=== PATIENT | female | born 2000 | race African-American/Black ===

== ENCOUNTER 2022-09-21 10:36 | Emergency (ER) | payer SELFPAY ==
[2022-09-21 13:18] LABS: Specific Gravity 1.031 (1.005-1.030)
[2022-09-21 13:42] LABS: Specific Gravity > 1.030 (1.005-1.030); Urine Bacteria <20 /HPF (<20); Urine Bilirubin NEGATIVE (Negative); Urine Blood 3+ (OVER) (Negative); Urine Clarity Extremely Turbid (Clear); Urine Color Red (Yellow); Urine Glucose NEGATIVE (Negative); Urine Mucus 3+ /HPF (None Seen); Urine Protein 2+ (Negative); Urine RBC >50 /HPF (None Seen); Urine Urobilinogen Normal (Normal)
[2022-09-21 14:23] LABS: Absolute Lymphocytes (CBC) 1.7 K/uL (0.7-4.9); Hematocrit 33.4 % (36.0-45.0); Lymphocytes % 28.6 % (15.3-44.8); MCV 74.1 fL (80-100); MPV 8.2 fL (7.6-11.3); RBC Red Blood Cell Count 4.51 M/uL (3.86-4.86)
[2022-09-21 14:33] LABS: Potassium 3.7 mEq/L (3.5-5.1)
--- NOTE | 2022-09-21 14:36 | RAD REPORT ---
EXAM DESCRIPTION: US - Transvaginal OB - 09/21/2022 2:13 pm CLINICAL HISTORY: Vaginal bleeding;Abd cramping, COMPARISON: No comparisons TECHNIQUE: Sonographic grayscale and color flow images of a the pelvis were obtained through transva ginal approach. FINDINGS: Uterus is normal in size measuring 8.5 centimeter in length, and homogeneous myometrium ap art from few scattered vascular spaces. No focal myometrial abnormality. Endometrium is normal thickn ess, 7 millimeter, without fluid or focal lesions. Trace pelvic fluid with debris. Right ovary measures 1.8 x 2.8 x 1.9 centimeter. Left ovary measures 2.7 x 1.9 x 1.6 centimeter. Both ovaries demonstrate small normal-appearing peripheral follicles. No suspicious masses or cysts. Pres erved flow to both ovaries. IMPRESSION: 1. No intrauterine identified. 2. Trace pelvic fluid, likely physiologic. 3. No suspicious myometrial or adnexal lesions.
--- NOTE | 2022-09-21 14:58 | EDPHYS ---
Physician Documentation [facility] Name: Edwina Love Age: 22 yrs Sex: Female : 2000 Arrival Date: 09/21/2022 Time: 10:36 Bed 10 Private MD: ED Physician Ruben Keenan HPI: 09/21 17:32 This 22 yrs old Black Female presents to ER via Ambulatory with complaints of Abdominal kb Pain, Nausea/Vomiting/Diarrhea, Vaginal Bleeding. 17:32 The patient presents with abdominal pain suprapubic area. Onset: The symptoms/episode kb began/occurred yesterday. The symptoms do not radiate. Associated signs and symptoms: Pertinent positives: nausea and vomiting, hematuria, Pertinent negatives: dysuria, fever. The symptoms are described as crampy. Modifying factors: The symptoms are alleviated by nothing, the symptoms are aggravated by nothing. Severity of pain: At its worst the pain was moderate in the emergency department the pain is unchanged. The patient has not experienced similar symptoms in the past. The patient has not recently seen a physician. Pt reports suprapubic cramping pain, blood in her urine and nausea and vomiting that started last night. Denies nausea or vomiting today. 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 Flu vaccine is not up to date. - Social history:: Smoking status: Patient denies any tobacco usage or history of. ROS: 17:29 Constitutional: Negative for fever, chills, and weight loss. kb 17:29 Abdomen/GI: Positive for nausea and vomiting, abdominal cramps, Negative for diarrhea. 17:29 : Positive for hematuria. 17:29 All other systems are negative. Exam: 17:29 Constitutional: This is a well developed, well nourished patient who is awake, alert, kb and in no acute distress. Head/Face: Normocephalic, atraumatic. ENT: Moist Mucous membranes Cardiovascular: Regular rate and rhythm with a normal S1 and S2. No gallops, murmurs, or rubs. No pulse deficits. Respiratory: Respirations even and unlabored. No increased work of breathing. Talking in full sentences Abdomen/GI: Soft, non-tender. No distention Skin: Warm, dry with normal turgor. Normal color. MS/ Extremity: Pulses equal, no cyanosis. Neurovascular intact. Full, normal range of motion. Neuro: Awake and alert, GCS 15, oriented to person, place, time, and situation. Moves all extremities. Normal gait. Vital Signs: 10:52 BP 123 / 83; Pulse 84; Resp 18; Temp 97.8; Pulse Ox 100% ; Weight 65.77 kg; Height 5 kc6 ft. 3 in. ; Pain 6/10; 15:18 BP 106 / 83; Pulse 83; Resp 17; Pulse Ox 100% ; Pain 0/10; ll1 10:52 Body Mass Index 25.69 (65.77 kg, 160.02 cm) kc6 10:52 Pain Scale: Adult kc6 15:18 Pain Scale: Adult ll1 MDM: 10:52 Patient medically screened. kb 17:33 Differential diagnosis: UTI, STI, . Data reviewed: vital signs, nurses notes. kb Counseling: I had a detailed discussion with the patient and/or guardian regarding: the historical points, exam findings, and any diagnostic results supporting the discharge/admit diagnosis, lab results, radiology results, the need for outpatient follow up, an OB/Gyne specialist, to return to the emergency department if symptoms worsen or persist or if there are any questions or concerns that arise at home. 09/21 10:52 Order name: Test, Urine; Complete Time: 13:38 kb 09/21 10:52 Order name: Urinalysis w/ reflexes; Complete Time: 13:44 kb 09/21 13:41 Order name: Abo/rh Typing; Complete Time: 14:57 kb 09/21 13:41 Order name: Basic Metabolic Panel; Complete Time: 14:35 kb 09/21 13:41 Order name: CBC with Diff; Complete Time: 14:35 kb 09/21 13:41 Order name: Quantitative Hcg; Complete Time: 14:35 kb 09/21 13:45 Order name: Urine Culture EDMS 09/21 13:41 Order name: US Transvaginal Ob; Complete Time: 14:38 kb 09/21 13:41 Order name: IV Saline Lock; Complete Time: 13:50 kb 09/21 13:41 Order name: Labs collected and sent; Complete Time: 13:50 kb 09/21 13:41 Order name: NPO; Complete Time: 13:50 kb Administered Medications: No medications were administered Disposition: 18:08 Co-signature as Attending Physician, Ruben Keenan MD I reviewed the patient's care rt provided by the Advanced Practice Provider and agree with the diagnosis and treatment plan. Disposition Summary: 09/21/22 14:58 Discharge Ordered Location: Home kb Condition: Stable kb Diagnosis - Threatened kb Followup: kb - With: Emergency Department - When: As needed - Reason: Worsening of condition Followup: kb - With: Private Physician - When: 2 - 3 days - Reason: Recheck today's complaints, Continuance of care, Re-evaluation by your physician Discharge Instructions: - Discharge Summary Sheet kb - Threatened Miscarriage, [id number] kb - Vaginal Bleeding During , First Trimester, [id number] kb Forms: - Medication Reconciliation Form kb - Thank You Letter kb - Antibiotic Education kb - Prescription Opioid Use kb Signatures: Dispatcher [employer] Caron Harrington, CLEANER AND PRESSER-C KRYSTEN-Sirisha Llanes, RN RN kc6 Ruben Keenan MD MD rt
--- NOTE | 2022-09-21 14:58 | ER ---
Nurse's Notes [facility] Name: Edwina Love Age: 22 yrs Sex: Female : 2000 Arrival Date: 09/21/2022 Time: 10:36 Bed 10 Private MD: Diagnosis: Threatened Presentation: 09/21 10:52 Chief complaint: Patient states: LLQ pain and vaginal bleeding that began last night kc6 with n/v and diarrhea. Coronavirus screen: At this time, the client does not indicate any symptoms associated with coronavirus-19. Ebola Screen: No symptoms or risks identified at this time. Initial Sepsis Screen: Does the patient meet any 2 criteria? No. Patient's initial sepsis screen is negative. Does the patient have a suspected source of infection? No. Patient's initial sepsis screen is negative. Risk Assessment: Do you want to hurt yourself or someone else? Patient reports no desire to harm self or others. Onset of symptoms was September 21, 2022. 10:52 Method Of Arrival: Ambulatory [facility] 10:52 Acuity: ISAAC 3 kc6 Triage Assessment: 10:54 General: Appears in no apparent distress. comfortable, Behavior is calm, cooperative, kc6 appropriate for age. Pain: Complains of pain in left lower quadrant Pain currently is 6 out of 10 on a pain scale. Cardiovascular: Capillary refill < 3 seconds. Respiratory: Airway is patent Trachea midline Respiratory effort is even, unlabored, Respiratory pattern is regular, symmetrical. GI: Reports lower abdominal pain, diarrhea, nausea, vomiting. : Reports vaginal bleeding that is bright red, heavy flow. 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 Flu vaccine is not up to date. - Social history:: Smoking status: Patient denies any tobacco usage or history of. Screenin:18 [facility] ED Fall Risk Assessment (Adult) Score/Fall Risk Level 0 - 2 = Low Risk ll1 Oriented to surroundings, Maintained a safe environment, Educated pt \T\ family on fall prevention, incl call for assistance when getting out of bed, Hourly rounding (assess needs \T\ fall precautionary measures) done. Abuse screen: Denies threats or abuse. Nutritional screening: No deficits noted. Tuberculosis screening: No symptoms or risk factors identified. Assessment: 14:08 Reassessment: No changes from previously documented assessment. Patient and/or family ll1 updated on plan of care and expected duration. Pain level reassessed. Patient is alert, oriented x 3, equal unlabored respirations, skin warm/dry/pink. 15:17 Reassessment: No changes from previously documented assessment. Patient and/or family ll1 updated on plan of care and expected duration. Pain level reassessed. Patient is alert, oriented x 3, equal unlabored respirations, skin warm/dry/pink. Vital Signs: 10:52 BP 123 / 83; Pulse 84; Resp 18; Temp 97.8; Pulse Ox 100% ; Weight 65.77 kg; Height 5 kc6 ft. 3 in. ; Pain 6/10; 15:18 BP 106 / 83; Pulse 83; Resp 17; Pulse Ox 100% ; Pain 0/10; ll1 10:52 Body Mass Index 25.69 (65.77 kg, 160.02 cm) kc6 10:52 Pain Scale: Adult kc6 15:18 Pain Scale: Adult ll1 ED Course: 10:41 Patient arrived in ED. am2 10:41 Caron Bills FNP-C [facility] kb 10:41 Ruben Keenan MD is Attending Physician. kb 10:54 Triage completed. kc6 10:54 Arm band placed on. kc6 11:33 Test, Urine Sent. ll1 11:33 Urinalysis w/ reflexes Sent. ll1 13:18 Test, Urine Sent. rs5 13:18 Urinalysis w/ reflexes Sent. rs5 14:08 Gaby Barlow, RN is Primary Nurse. ll1 14:08 Inserted saline lock: 22 gauge in right antecubital area, using aseptic technique. ll1 Blood collected. 14:15 US Transvaginal Ob In Process Unspecified. EDMS 15:18 IV discontinued, intact, bleeding controlled, No redness/swelling at site. Pressure ll1 dressing applied. 15:18 No provider procedures requiring assistance completed. ll1 15:19 Patient has correct armband on for positive identification. Bed in low position. Call ll1 light in reach. Cardiac monitoring not applicable on this patient. Administered Medications: No medications were administered Medication: 15:19 VIS not applicable for this client. ll1 Outcome: 14:58 Discharge ordered by . ace 15:18 Discharged to home ambulatory. ll1 15:18 Condition: stable 15:18 Discharge instructions given to patient, Instructed on discharge instructions, follow up and referral plans. Demonstrated understanding of instructions, follow-up care. 15:19 Patient left the ED. ll1 Addendum: 09/25/2022 09:18 Addendum: Culture Results: Positive urine culture. Patient was not prescribed a a5 antibiotics at discharge. Report given to JULEE for further evaluation and then to senior manager creative services for follow up with patient. Phone call Attempt #1 left voice mail. Signatures: Dispatcher MedCorengist EDCaron Duncan, SHERRI CLIENT DELIVERY SPECIALIST-Britney Angelo, RN RN aa5 Marilyn Newman Lynsay RN RN ll1 Sirisha Segovia RN RN kc6 Zane Antoine rs5
[2022-09-21 15:34] VITALS: TEMP 97.8; O2SAT 100
[2022-09-21 15:44] VITALS: BP 106/83
== END 2022-09-21 15:19 | disposition home or self-care (01) ==
LOC: ER 10:36
DX: O20.0 Threatened abortion (principal)
CPT/HCPCS: 36415; 76817; 80048; 81001; 81025; 84702; 85025; 86900; 86901; 87077; 87086; 87088; 87186; 99284

== ENCOUNTER 2022-09-27 12:00 | Emergency (ER) | payer SELFPAY ==
--- NOTE | 2022-09-27 14:07 | ER ---
Nurse's Notes [facility] Name: Edwina Love Age: 22 yrs Sex: Female : 2000 Arrival Date: 09/27/2022 Time: 12:00 Bed DX3 Private MD: Diagnosis: Threatened Presentation: 09/27 12:38 Chief complaint: Patient states: needs a repeat hcg level, was seen here a week ago , iw is approx 3-4 weeks . Coronavirus screen: At this time, the client does not indicate any symptoms associated with coronavirus-19. Ebola Screen: Patient negative for fever greater than or equal to 101.5 degrees Fahrenheit, and additional compatible Ebola Virus Disease symptoms Patient denies exposure to infectious person. Patient denies travel to an Ebola-affected area in the 21 days before illness onset. No symptoms or risks identified at this time. Initial Sepsis Screen: Does the patient meet any 2 criteria? No. Patient's initial sepsis screen is negative. Does the patient have a suspected source of infection? No. Patient's initial sepsis screen is negative. Risk Assessment: Do you want to hurt yourself or someone else? Patient reports no desire to harm self or others. Onset of symptoms was September 27, 2022. 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 - Social history:: Smoking status: Patient denies any tobacco usage or history of. Screenin:58 [facility] ED Fall Risk Assessment (Adult) History of falling in the last 3 months, iw including since admission. Abuse screen: Denies threats or abuse. Denies injuries from another. Nutritional screening: No deficits noted. Tuberculosis screening: No symptoms or risk factors identified. Assessment: 12:58 General: Appears in no apparent distress. Behavior is calm, cooperative. Pain: Denies iw pain. Neuro: Level of Consciousness is awake, alert, obeys commands, Oriented to person, place, time, situation, Moves all extremities. Full function. Respiratory: Respiratory effort is even, unlabored, Respiratory pattern is regular. Derm: Skin is intact, is healthy with good turgor. Musculoskeletal: Range of motion: intact in all extremities. 14:15 Reassessment: No changes from previously documented assessment. Patient and/or family ll1 updated on plan of care and expected duration. Pain level reassessed. Patient is alert, oriented x 3, equal unlabored respirations, skin warm/dry/pink. Vital Signs: 12:38 BP 125 / 86; Pulse 95; Resp 16; Temp 98.4; Pulse Ox 100% on R/A; Weight 65.77 kg; iw Height 5 ft. 3 in. ; 12:38 Body Mass Index 25.69 (65.77 kg, 160.02 cm) iw ED Course: 12:02 Patient arrived in ED. rg4 12:03 Maikel Stover MD is Attending Physician. bs3 12:39 Triage completed. iw 12:58 Palma Price RN is Primary Nurse. iw 12:58 HCG-Quantitative Sent. rs5 14:16 No provider procedures requiring assistance completed. Patient did not have IV access ll1 during this emergency room visit. 14:16 Arm band placed on. ll1 14:16 Patient has correct armband on for positive identification. Bed in low position. Call ll1 light in reach. Side rails up X 1. Cardiac monitoring not applicable on this patient. Administered Medications: No medications were administered Medication: 12:59 VIS not applicable for this client. iw Outcome: 14:07 Discharge ordered by . bs3 14:16 Discharged to home ambulatory. ll1 14:16 Condition: stable 14:16 Discharge instructions given to patient, Instructed on discharge instructions, follow up and referral plans. Demonstrated understanding of instructions, follow-up care. 14:18 Patient left the ED. ll1 Signatures: Palma Price, RN BRENDA iw Sofya Escalante rg4 Gaby Barlow RN RN ll1 Maikel Stover MD MD bs3 Zane Antoine rs5
--- NOTE | 2022-09-27 14:07 | EDPHYS ---
Physician Documentation [facility] Name: Edwina Love Age: 22 yrs Sex: Female : 2000 Arrival Date: 09/27/2022 Time: 12:00 Bed DX3 Private MD: ED Physician Maikel Stover HPI: 09/27 14:05 This 22 yrs old Black Female presents to ER via Ambulatory with complaints of Recheck bs3 HCG Levels. 14:05 22-year-old female presents for repeat beta-hCG she denies any complaints the bleeding bs3 is stopped she has no significant abdominal pain denies any other concerns. 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 - Social history:: Smoking status: Patient denies any tobacco usage or history of. ROS: 14:05 Constitutional: Negative for fever, chills bs3 14:05 All other systems are negative. Exam: 14:05 Constitutional: This is a well developed, well nourished patient who is awake, alert, bs3 and in no acute distress. Head/Face: Normocephalic, atraumatic. Eyes: Pupils equal round and reactive to light, extra-ocular motions intact. Lids and lashes normal. ENT: mmm, no posterior phyarngeal erythema Chest/axilla: Normal chest wall appearance and motion. Nontender with no deformity. No lesions are appreciated. Cardiovascular: Regular rate and rhythm with a normal S1 and S2. symmetric pulses in upper extremities Respiratory: Lungs have equal breath sounds bilaterally, clear to auscultation, no respiratory distress Abdomen/GI: Soft, non-tender, no rebound or guarding MS/ Extremity: Pulses equal, no cyanosis. Neurovascular intact. Full, normal range of motion. Neuro: Awake and alert, GCS 15, oriented to person, place, time, and situation. Cranial nerves II-XII grossly intact. Motor strength 5/5 in all extremities. Sensory grossly intact. Psych: Awake, alert, with orientation to person, place and time. Behavior, mood, and affect are within normal limits. Vital Signs: 12:38 BP 125 / 86; Pulse 95; Resp 16; Temp 98.4; Pulse Ox 100% on R/A; Weight 65.77 kg; iw Height 5 ft. 3 in. ; 12:38 Body Mass Index 25.69 (65.77 kg, 160.02 cm) iw MDM: 12:03 Patient medically screened. bs3 14:05 Differential Diagnosis Possible ectopic versus IUP versus miscarriage. Data reviewed: bs3 vital signs, nurses notes. ED course: hCG improved however she returned more than 72 hours later therefore it is slightly difficult to interpret however it does seem like it is doubling appropriately advise repeat in 1 week with ultrasound in 1 week to follow return precautions for abdominal pain or vaginal bleeding or any other concerning symptoms. 09/27 12:03 Order name: HCG-Quantitative; Complete Time: 13:48 bs3 Administered Medications: No medications were administered Disposition Summary: 09/27/22 14:07 Discharge Ordered Location: Home bs3 Problem: new bs3 Symptoms: have improved bs3 Condition: Stable bs3 Diagnosis - Threatened bs3 Followup: bs3 - With: Private Physician - When: 1 week - Reason: Re-evaluation by your physician Discharge Instructions: - Discharge Summary Sheet bs3 - Vaginal Bleeding During , First Trimester bs3 Forms: - Medication Reconciliation Form bs3 - Thank You Letter bs3 - Antibiotic Education bs3 - Prescription Opioid Use bs3 Signatures: Dispatcher [employer] Palma Hopkins, Gaby Gibbs RN, RN RN kelly1 Maikel Stover MD MD bs3
[2022-09-27 14:54] VITALS: BP 125/86; TEMP 98.4; O2SAT 100
== END 2022-09-27 14:18 | disposition home or self-care (01) ==
LOC: ER 12:00
DX: O20.0 Threatened abortion (principal)
CPT/HCPCS: 36415; 84702

== ENCOUNTER 2024-02-17 15:55 | Emergency (ER) | payer SELFPAY ==
[2024-02-17 16:36] LABS: Specific Gravity 1.029 (1.005-1.030); Sqamous Epithelial <5 /HPF (None Seen); Urine Bacteria None Seen /HPF (<20); Urine Bilirubin NEGATIVE (Negative); Urine Blood Trace (Negative); Urine Clarity Turbid (Clear); Urine Color Yellow (Yellow); Urine Culture Reflex Order NOT NEEDED; Urine Glucose NEGATIVE (Negative); Urine Ketones NEGATIVE (Negative); Urine Microscopic Reflex YN ORDER UMIC; Urine Mucus 2+ /HPF (None Seen); Urine Nitrite NEGATIVE (Negative); Urine Protein 1+ (Negative); Urine RBC <5 /HPF (None Seen); Urine Urobilinogen Normal (Normal); Urine WBC <5 /HPF (<5); Urine Yeast (Budding) Trace /HPF (None Seen); Urine pH 5.5 (5.0-7.0)
[2024-02-17 17:09] LABS: Absolute Lymphocytes (CBC) 1.5 K/uL (0.7-4.9); Absolute Monocytes 0.4 K/uL (0.1-1.3); Absolute Neutrophil 4.5 K/uL (1.8-8.0); Basophils % 0.5 % (0-1.3); Eosinophils % 0.2 % (0-4.4); Hemoglobin 11.6 g/dL (12.0-15.0); Lymphocytes % 23.3 % (15.3-44.8); MCH 29.5 pg (27.0-35.0); MCHC 32.4 g/dL (32.0-36.0); MCV 91.1 fL (80-100); MPV 8.7 fL (7.6-11.3); Monocytes % 5.9 % (3.3-12.3); Neutrophils % 70.1 % (41.7-73.7); Platelets 314 thou/uL (152-406); RBC Red Blood Cell Count 3.95 M/uL (3.86-4.86); Red Cell Distribution Width 16.2 % (12.1-15.2)
--- NOTE | 2024-02-17 17:16 | RAD REPORT ---
EXAMINATION: Transvaginal Study Probe CLINICAL INDICATION: Pelvic pain with vaginal bleeding TECHNIQUE: Real-time ultrasonography of the pelvis was performed transvaginally. Color and spectral D oppler evaluation of the ovaries was performed. COMPARISON: January 2024 FINDINGS: The uterus measures 9 x 5 x 7 cm. Endometrial stripe normal. A fibroid is not seen 2.2 cm mass containing echoes is present within the right ovary. It has decreased in size. Previously it measured 3.1 cm. This is likely a hemorrhagic cyst. Blood flow is present to the right ovary. 2 cm hemorrhagic cyst left ovary. Blood flow to the left ovary is present. Right and left adnexa unremarkable Small amount of free fluid. IMPRESSION: 2.2 cm right ovarian hemorrhagic cyst has decreased in size since prior exam 2.1 cm left ovarian hemorrhagic cyst
[2024-02-17 17:23] LABS: Anion Gap 6.1 mEq/L (5.0-15.0); Potassium 4.1 mEq/L (3.5-5.1)
--- NOTE | 2024-02-17 17:27 | EDPHYS ---
Physician Documentation [facility] Name: Edwina Love Age: 24 yrs Sex: Female : 2000 Arrival Date: 02/17/2024 Time: 15:55 Bed 8 Private MD: ED Physician West Cooper HPI: 02/16 17:01 This 24 yrs old Black Female presents to ER via Ambulatory with complaints of Vaginal kb Bleeding. 17:01 Pt is a 24 year old female who presents for vaginal bleeding that has been ongoing for kb 9 days. States she had a period 2.5 weeks ago and then started bleeding again. Denies abd pain, shortness of breath, dizziness. STates the bleeding is not heavy and she only has to wear a tampon at times, but sometimes it is just spotting. . 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 - Infectious Disease History:: Denies. - Social history:: Smoking status: Patient denies any tobacco usage or history of. ROS: 17:00 Constitutional: As per HPI kb Exam: 17:00 Constitutional: This is a well developed, well nourished patient who is awake, alert, kb and in no acute distress. Head/Face: Normocephalic, atraumatic. ENT: Moist Mucous membranes Cardiovascular: Regular rate Respiratory: Respirations even and unlabored. No increased work of breathing. Talking in full sentences Abdomen/GI: Soft, non-tender. No distention Skin: Warm, dry with normal turgor. Normal color. MS/ Extremity: Pulses equal, no cyanosis. Neurovascular intact. Full, normal range of motion. Neuro: Awake and alert, GCS 15, oriented to person, place, time, and situation. Moves all extremities. Normal gait. Vital Signs: 16:02 BP 131 / 99; Pulse 84; Resp 17; Temp 97.4; Pulse Ox 100% ; Weight 63.5 kg; Height 5 ft. ll1 2 in. ; Pain 0/10; 17:31 BP 122 / 81; Pulse 75; Resp 16; Pulse Ox 98% on R/A; mb9 16:02 Body Mass Index 25.61 (63.50 kg, 157.48 cm) ll1 16:02 Pain Scale: Adult ll1 MDM: 15:58 Patient medically screened. kb 17:01 Differential diagnosis: endometriosis, menorrhea, ovarian cyst, uterine fibroids. Data kb reviewed: vital signs, nurses notes. 17:26 Counseling: I had a detailed discussion with the patient and/or guardian regarding the kb historical points, exam findings, and any diagnostic results supporting the discharge/admit diagnosis, lab results, radiology results, the need for outpatient follow up, an OB/Gyne specialist, to return to the emergency department if symptoms worsen or persist or if there are any questions or concerns that arise at home. 02/16 16:12 Order name: Basic Metabolic Panel; Complete Time: 17:23 kb 02/16 16:12 Order name: CBC with Diff; Complete Time: 17:12 kb 02/16 16:12 Order name: Test, Urine; Complete Time: 16:42 kb 02/16 16:12 Order name: Urinalysis w/ reflexes; Complete Time: 16:42 kb 02/16 16:12 Order name: US Transvaginal Study (Probe); Complete Time: 17:17 kb 02/16 16:12 Order name: IV Saline Lock; Complete Time: 17:00 kb 02/16 16:12 Order name: Labs collected and sent; Complete Time: 17:00 kb 02/16 16:12 Order name: NPO; Complete Time: 16:16 kb Administered Medications: No medications were administered Disposition Summary: 02/17/24 17:26 Discharge Ordered Notes: Location: Home kb Condition: Stable kb Diagnosis - Abnormal uterine and vaginal bleeding, unspecified kb - Other ovarian cysts kb Followup: kb - With: Emergency Department - When: As needed - Reason: Worsening of condition Followup: kb - With: Private Physician - When: 2 - 3 days - Reason: Recheck today's complaints, Continuance of care, Re-evaluation by your physician Discharge Instructions: - Discharge Summary Sheet kb - Ovarian Cyst, [id number] kb - Abnormal Uterine Bleeding, [id number] kb Forms: - Medication Reconciliation Form kb - Antibiotic Education kb - Prescription Opioid Use kb - Patient Portal Instructions kb - Leadership Thank You Letter kb - Work release form mb9 Addendum: 02/19/2024 17:59 I was immediately available for consultation during this patient's visit. I did not e c2 personally see the patient or discuss the patient with the JULEE. . Signatures: Dispatcher [employer] Caron Harrington, FRONT END WEB DESIGNER-C KRYSTEN-Gaby Zapata RN RN ll1 Terry, Dena Machuca RN RN mb9 West Cooper MD MD ec2 Corrections: (The following items were deleted from the chart) 02/16 16:13 16:13 Transvaginal Study (Probe)+[email or web address] ordered. MINOR G[place]
--- NOTE | 2024-02-17 17:27 | ER ---
Nurse's Notes [facility] Name: Edwina Love Age: 24 yrs Sex: Female : 2000 Arrival Date: 02/17/2024 Time: 15:55 Bed 8 Private MD: Diagnosis: Abnormal uterine and vaginal bleeding, unspecified;Other ovarian cysts Presentation: 02/16 16:02 Chief complaint: Patient states: Vaginal bleeding for 9 days. + fatigue, but no ll1 significant pain. Coronavirus screen: Client denies travel out of the [place] in the last 14 days. At this time, the client does not indicate any symptoms associated with coronavirus-19. Ebola Screen: Patient denies travel to an Ebola-affected area in the 21 days before illness onset. Initial Sepsis Screen: Does the patient meet any 2 criteria? No. Patient's initial sepsis screen is negative. Does the patient have a suspected source of infection? No. Patient's initial sepsis screen is negative. Risk Assessment: Do you want to hurt yourself or someone else? Patient reports no desire to harm self or others. Onset of symptoms was February 08, 2024. 16:02 Method Of Arrival: Ambulatory ll1 16:02 Acuity: ISAAC 3 ll1 Triage Assessment: 16:04 General: Appears uncomfortable, Behavior is calm, cooperative, appropriate for age. ll1 Pain: Denies pain. : Reports vaginal bleeding that is brown, light flow. 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 - Infectious Disease History:: Denies. - Social history:: Smoking status: Patient denies any tobacco usage or history of. Screenin:52 [facility] ED Fall Risk Assessment (Adult) History of falling in the last 3 months, mb9 including since admission No falls in past 3 months (0 pts) Confusion or Disorientation No (0 pts) Intoxicated or Sedated No (0 pts) Impaired Gait No (0 pts) Mobility Assist Device Used No (0 pt) Altered Elimination No (0 pt) Score/Fall Risk Level 0 - 2 = Low Risk Oriented to surroundings, Maintained a safe environment, Educated pt \T\ family on fall prevention, incl call for assistance when getting out of bed. Abuse screen: Denies threats or abuse. Nutritional screening: No deficits noted. Tuberculosis screening: No symptoms or risk factors identified. Assessment: 16:15 General: Appears in no apparent distress. Behavior is calm, cooperative. Pain: Denies mb9 pain. Neuro: Qureshi Agitation-Sedation Scale (RASS): 0 - Alert and Calm Level of Consciousness is awake, alert, obeys commands, Oriented to person, place, time, situation, Appropriate for age. 16:15 Cardiovascular: Patient's skin is warm and dry. Respiratory: Airway is patent mb9 Respiratory effort is even, unlabored, Respiratory pattern is regular, symmetrical. GI: Abdomen is flat, non-distended, Bowel sounds present X 4 quads. Abd is soft and non tender X 4 quads. : Urine is clear, Reports vaginal bleeding that is bright red, moderate flow. EENT: No signs and/or symptoms were reported regarding the EENT system. Derm: Skin is pink, warm \T\ dry. Musculoskeletal: Range of motion: intact in all extremities. 16:26 Reassessment: Pt taken to US. mb9 Vital Signs: 16:02 BP 131 / 99; Pulse 84; Resp 17; Temp 97.4; Pulse Ox 100% ; Weight 63.5 kg; Height 5 ft. ll1 2 in. ; Pain 0/10; 17:31 BP 122 / 81; Pulse 75; Resp 16; Pulse Ox 98% on R/A; mb9 16:02 Body Mass Index 25.61 (63.50 kg, 157.48 cm) ll1 16:02 Pain Scale: Adult ll1 ED Course: 15:57 Patient arrived in ED. mg5 15:58 Caron Bills FNP-C is [facility]. kb 15:58 West Cooper MD is Attending Physician. kb 16:00 Arm band placed on. ll1 16:04 Triage completed. ll1 16:25 Dena Stewart RN is Primary Nurse. mb9 16:25 Urinalysis w/ reflexes Sent. mb9 16:25 Test, Urine Sent. mb9 16:52 Placed in gown. Bed in low position. Call light in reach. Side rails up X 1. Provided mb9 Education on: press call light if needing anything. Client placed on continuous cardiac and pulse oximetry monitoring. NIBP monitoring applied. 16:53 No provider procedures requiring assistance completed. mb9 16:59 Transvaginal Study (Probe) In Process Unspecified. EDMS 17:00 Initial lab(s) drawn, by me, sent to lab. Urine collected: clean catch specimen, clear. mb9 Inserted saline lock: 20 gauge in left antecubital area, using aseptic technique. Blood collected. Flushed with 10 mL NS. 17:00 Basic Metabolic Panel Sent. mb9 17:00 CBC with Diff Sent. mb9 17:31 IV discontinued, intact, bleeding controlled, No redness/swelling at site. Pressure mb9 dressing applied. Administered Medications: No medications were administered Medication: 16:53 VIS not applicable for this client. mb9 Outcome: 17:26 Discharge ordered by . ace 17:36 Discharged to home ambulatory, mb9 17:36 Condition: stable 17:36 Discharge instructions given to patient, Instructed on discharge instructions, follow up and referral plans. Demonstrated understanding of instructions, follow-up care, 17:37 Patient left the ED. mb9 Signatures: Dispatcher [employer] ED[facility] Caron Bills, SHERRI BASHIR-Gaby Zapata RN RN ll1 Dena Stewart RN RN mb9 aDi Shafer mg5
[2024-02-17 20:25] VITALS: TEMP 97.4
[2024-02-17 20:37] VITALS: BP 122/81; O2SAT 98
== END 2024-02-17 17:37 | disposition home or self-care (01) ==
LOC: ER 15:55
DX: N83.299 Other ovarian cyst, unspecified side (principal)
CPT/HCPCS: 36415; 76830; 80048; 81001; 81025; 85025